=== PATIENT | male | born 1940 | race Native Hawaiian/Other Pacific Islander ===

== ENCOUNTER 2020-11-27 11:46 | Emergency (ER) | payer OTHER ==
[~2020-11-27] VITALS: Ht 172.7 cm; Wt 99.8 kg
[2020-11-27 12:28] LABS: PLATELET COUNT 174 K/uL (142-355)
[2020-11-27 12:36] LABS: POTASSIUM 2.9 mmol/L (3.6-5.2); SODIUM 142 mmol/L (136-145)
[2020-11-27 12:45] LABS: PARTIAL THROMBOPLASTIN TIME 27.7 SECONDS (24.5-33.6)
[2020-11-27 21:15] VITALS: BP 16/88; TEMP 97.6
== END 2020-11-27 21:15 | disposition short-term general hospital (02) ==
LOC: ED 11:46
PROVIDERS: Hospitalist
DX: K85.80 Other acute pancreatitis without necrosis or infection (principal); A41.9 Sepsis, unspecified organism; N28.89 Other specified disorders of kidney and ureter; R53.1 Weakness; Z11.52 Encounter for screening for COVID-19; W18.39XA Other fall on same level, initial encounter; Y92.89 Other specified places as the place of occurrence of the external cause
CPT/HCPCS: 80053; 80320; 81000; 82550; 82553; 83605; 83690; 83880; 84484; 85027; 85610; 85730; 87040; 87077; 87186; 87205; 87635; 93005; 96360; 96366; 99283; J1956; U0003